=== PATIENT | female | born 1935 | race Caucasian/White ===

== ENCOUNTER 2017-11-27 07:53 | Emergency (ER) | payer OTHER ==
[~2017-11-27] VITALS: Ht 165.1 cm; Wt 77.1 kg
[~2017-11-27 07:53] MED LIST: ATORVASTATIN CA40 MG PO; AUGMENTIN 875875 MG PO; FLOMAX0.4 MG PO; HYDROCODON-ACE1 EAC5 PO; HYDROCODONE-AP1 EAC6 PO; LEVAQUIN 500 M500 M2 PO; LIDOCAINE VISC100 M1 MM; LISINOPRIL5 MG PO; NORCO 5-325 TA1 EACH PO; PENICILLIN V P500 MG PO; TRAMADOL 50 MG50 MG PO; XANAX1 MG PO
[2017-11-27] MEDS ORDERED: ATIVAN1 MG PO (08:30)
[2017-11-27 08:49] LABS: NUCLEATED RBCS 0 /100WBC; RDW-CV 13.3 % (10.5-14.5)
[2017-11-27 08:54] LABS: HEMOGLOBIN 13.8 gm/dL (12.0-15.0); MCH 29.8 pg (26.0-34.0); MCHC 33.6 g/dL (28.0-37.0); MCV 88.4 fL (80.0-100.0); MPV 9.5 fl. (7.2-11.1); PLATELET COUNT* 255 thou/uL (150-400); RBC 4.64 mil/uL (4.20-5.00)
[2017-11-27 08:58] LABS: CALCIUM 9.8 mg/dL (8.5-10.1); CREATININE 0.7 mg/dL (0.6-1.3); INR 1.1; POTASSIUM 4.1 mmol/L (3.5-5.1); PROTIME 10.4 Seconds (9.20-11.50)
[2017-11-27 09:11] LABS: ABSOLUTE EOSINOPHILS 0.2 thou/uL (0.0-0.7); ABSOLUTE LYMPHOCYTES 2.2 thou/uL (0.8-5.3); ABSOLUTE MONOCYTES 0.4 thou/uL (0.0-1.2); ABSOLUTE NEUTROPHILS 8.1 thou/uL (1.6-8.1); PLATELET ESTIMATE ADEQUATE
[2017-11-27 09:14] LABS: ALBUMIN 2.8 g/dL (3.4-5.0); TOTAL BILIRUBIN 0.4 mg/dL (<0.1-1.0); TOTAL PROTEIN 6.6 g/dL (6.4-8.2)
[2017-11-27 09:30] VITALS: BP 153/76
--- NOTE | 2017-11-27 14:47 | EKG ---
[place] [address] ELECTROCARDIOGRAM REPORT Name: HERMINIO ARCE Room: [facility]#: [id number] Admission: 11/27/17 Attend Phys: Discharge: 11/27/17 Date of : 37 Report #: [id number] THIS REPORT FOR: //name// [facility] ED Test Date: 2017-11-27 Test Time: 08:36:08 Pat Name: HERMINIO ARCE Department: Room: Gender: F Physical Meteorologist: Jose PINEDA : 1935 Requested By: Bryan Rosen Order Number: [id number] MD: Sukhjinder Mederos Measurements Intervals [place] Rate: 85 P: 44 [place]: 145 QRS: -16 QRSD: 77 T: 9 QT: 365 QTc: 434 Interpretive Statements Sinus rhythm Borderline left axis deviation Low voltage, precordial leads Compared to ECG 11/25/2016 10:57:34 Low QRS voltage now present Electronically Signed On 11-27-2017 14:47:22 CDT by Sukhjinder Mederos [email or web address] <ELECTRONICALLY SIGNED> By: Sukhjinder Mederos MD, [facility] 11/27/17 1447 0836 0836 Sukhjinder Mederos MD, FAC /EPI
== END 2017-11-27 09:31 | disposition home or self-care (01) ==
LOC: M.ERS 07:53
PROVIDERS: Family Medicine
DX: M54.9 Dorsalgia, unspecified (principal); M79.602 Pain in left arm; M79.601 Pain in right arm; F03.90 Unspecified dementia, unspecified severity, without behavioral disturbance, psychotic disturbance, mood disturbance, and anxiety; I50.9 Heart failure, unspecified; E78.5 Hyperlipidemia, unspecified

== ENCOUNTER 2018-04-02 12:33 | Emergency (ER) | payer OTHER ==
[~2018-04-02] VITALS: Ht 172.7 cm; Wt 76.0 kg
[~2018-04-02 12:33] MED LIST changes: +ATIVAN1 MG PO
[2018-04-02 12:54] LABS: ABSOLUTE BASOPHILS 0.1 thou/uL (0.0-0.2); ABSOLUTE EOSINOPHILS 0.1 thou/uL (0.0-0.7); ABSOLUTE LYMPHOCYTES 3.4 thou/uL (0.8-5.3); ABSOLUTE MONOCYTES 1.1 thou/uL (0.0-1.2); ABSOLUTE NEUTROPHILS 6.5 thou/uL (1.6-8.1); BASOPHILS 0.9 %; EOSINOPHILS 1.1 %; HEMATOCRIT 48.2 % (37.0-47.0); HEMOGLOBIN 16.5 gm/dL (12.0-15.0); LYMPHOCYTES 30.5 %; MCH 30.2 pg (26.0-34.0); MCHC 34.1 g/dL (28.0-37.0); MCV 88.5 fL (80.0-100.0); MONOCYTES 9.5 %; NUCLEATED RBCS 0 /100WBC; PLATELET COUNT* 224 thou/uL (150-400); RBC 5.45 mil/uL (4.20-5.00); WBC 11.2 thou/uL (4.0-11.0)
[2018-04-02] MEDS ORDERED: GABAPENTIN 100100 MG PO (12:54)
[2018-04-02] MEDS ORDERED: COREG6.25 MG PO (12:55)
[2018-04-02] MEDS ORDERED: RESTORIL30 MG PO (12:55)
[2018-04-02] MEDS ORDERED: MOBIC15 MG PO (12:55)
[2018-04-02] MEDS ORDERED: OXYBUTYNIN 5 MG5 M2 PO (12:55)
[2018-04-02 13:03] LABS: ANION GAP 13 mmol/L (7-16); APTT 27.1 Seconds (25.0-31.3); BUN 9 mg/dL (7-18); CALCIUM 10.7 mg/dL (8.5-10.1); CHLORIDE 103 mmol/L (98-107); CO2 21 mmol/L (21-32); CREATININE 0.7 mg/dL (0.6-1.3); GLUCOSE 140 mg/dL (70-99); INR 1.1; POTASSIUM 3.9 mmol/L (3.5-5.1); PROTIME 10.3 Seconds (9.20-11.50); SODIUM 137 mmol/L (136-145)
[2018-04-02 13:14] LABS: ALBUMIN 3.9 g/dL (3.4-5.0); ALKALINE PHOSPHATASE 78 U/L (46-116); NT-PRO BRAIN NAT PEPTIDE 82 pg/mL (<300); SGOT 22 U/L (15-37); SGPT 24 U/L (30-65); TOTAL BILIRUBIN 1.3 mg/dL (<0.1-1.0); TOTAL PROTEIN 8.3 g/dL (6.4-8.2); TROPONIN-I LEVEL <0.06 ng/mL (<0.06)
[2018-04-02] MEDS ORDERED: XANAX 1 MG TABLE1 MG PO (13:29)
[2018-04-02 13:36] VITALS: BP 141/77
--- NOTE | 2018-04-03 12:41 | EKG ---
[place] [address] ELECTROCARDIOGRAM REPORT Name: HERMINIO ARCE Room: [facility]#: [id number] Admission: 04/02/18 Attend Phys: Discharge: 04/02/18 Date of : 37 Report #: [id number] THIS REPORT FOR: //name// [facility] ED Test Date: 2018-04-02 Test Time: 12:40:35 Pat Name: HERMINIO ARCE Department: Room: Gender: F Acetylene Cutter: ADRIA : 1935 Requested By: Bryan Rosen Order Number: [id number] MD: Norbert Fabian Measurements Intervals [place] Rate: 82 P: 9 NM: 139 QRS: -17 QRSD: 83 T: 8 QT: 402 QTc: 470 Interpretive Statements Sinus rhythm Borderline left axis deviation Baseline wander in lead(s) V6 Compared to ECG 11/27/2017 08:36:08 No significant changes Electronically Signed On 04-03-2018 12:41:43 CDT by Norbert Fabian [email or web address] <ELECTRONICALLY SIGNED> By: Norbert Fabian MD, [facility] 04/03/18 1241 1240 39 Norbert Fabian MD, [facility] /EPI
== END 2018-04-02 13:36 | disposition home or self-care (01) ==
LOC: M.ERS 12:33
PROVIDERS: Family Medicine
DX: F41.0 Panic disorder [episodic paroxysmal anxiety] (principal); G89.29 Other chronic pain; M25.552 Pain in left hip; F03.90 Unspecified dementia, unspecified severity, without behavioral disturbance, psychotic disturbance, mood disturbance, and anxiety; E78.5 Hyperlipidemia, unspecified; I50.30 Unspecified diastolic (congestive) heart failure

== ENCOUNTER 2018-04-08 08:17 | Emergency (ER) | payer OTHER ==
[~2018-04-08] VITALS: Ht 160 cm; Wt 75.3 kg
[~2018-04-08 08:17] MED LIST changes: +COREG6.25 MG PO; +GABAPENTIN 100100 MG PO; +MOBIC15 MG PO; +OXYBUTYNIN 5 MG5 M2 PO; +RESTORIL30 MG PO; +XANAX 1 MG TABLE1 MG PO
[2018-04-08] MEDS ORDERED: BUSPIRONE HCL10 MG PO (08:33)
[2018-04-08 08:48] LABS: ABSOLUTE BASOPHILS 0.1 thou/uL (0.0-0.2); ABSOLUTE EOSINOPHILS 0.2 thou/uL (0.0-0.7); ABSOLUTE LYMPHOCYTES 3.2 thou/uL (0.8-5.3); ABSOLUTE MONOCYTES 1.1 thou/uL (0.0-1.2); ABSOLUTE NEUTROPHILS 4.9 thou/uL (1.6-8.1); BASOPHILS 1.2 %; EOSINOPHILS 2.1 %; HEMATOCRIT 45.3 % (37.0-47.0); HEMOGLOBIN 15.1 gm/dL (12.0-15.0); LYMPHOCYTES 33.5 %; MCH 29.9 pg (26.0-34.0); MCHC 33.4 g/dL (28.0-37.0); MCV 89.5 fL (80.0-100.0); MONOCYTES 11.5 %; MPV 10.6 fl. (7.2-11.1); NUCLEATED RBCS 0 /100WBC; PLATELET COUNT* 205 thou/uL (150-400); POLYS 51.7 %; RBC 5.06 mil/uL (4.20-5.00); RDW-CV 12.9 % (10.5-14.5); WBC 9.6 thou/uL (4.0-11.0)
[2018-04-08 08:53] LABS: ANION GAP 8 mmol/L (7-16); BUN 23 mg/dL (7-18); CALCIUM 10.5 mg/dL (8.5-10.1); CHLORIDE 106 mmol/L (98-107); CO2 23 mmol/L (21-32); CREATININE 0.6 mg/dL (0.6-1.3); GLUCOSE 134 mg/dL (70-99); POTASSIUM 4.1 mmol/L (3.5-5.1); SODIUM 137 mmol/L (136-145)
[2018-04-08 08:54] LABS: URINE BILIRUBIN NEGATIVE (Negative); URINE BLOOD NEGATIVE (Negative); URINE CLARITY CLEAR; URINE COLOR YELLOW; URINE GLUCOSE-RANDOM NEGATIVE (Negative); URINE KETONES NEGATIVE (Negative); URINE LEUKOCYTES-REFLEX NEGATIVE (Negative); URINE NITRITE-REFLEX NEGATIVE (Negative); URINE PROTEIN NEGATIVE (Negative); URINE UROBILINOGEN 0.2 E.U./dl (0.2-1.0)
[2018-04-08 08:59] LABS: ALBUMIN 3.3 g/dL (3.4-5.0); ALKALINE PHOSPHATASE 64 U/L (46-116); LIPASE 262 U/L (73-393); SGOT 22 U/L (15-37); SGPT 22 U/L (30-65); TOTAL BILIRUBIN 0.4 mg/dL (<0.1-1.0); TOTAL PROTEIN 7.2 g/dL (6.4-8.2); TROPONIN-I LEVEL <0.06 ng/mL (<0.06)
[2018-04-08] MEDS ORDERED: ATIVAN1 MG PO (11:01)
[2018-04-08 11:27] VITALS: BP 144/75
--- NOTE | 2018-04-08 19:35 | EKG ---
[place] [address] ELECTROCARDIOGRAM REPORT Name: HERMINIO ARCE Room: [facility]#: [id number] Admission: 04/08/18 Attend Phys: Discharge: 04/08/18 Date of : 37 Report #: [id number] THIS REPORT FOR: //name// [facility] ED Test Date: 2018-04-08 Test Time: 08:24:10 Pat Name: HERMINIO ARCE Department: Room: Gender: F International Marketing Executive: Jose PINEDA : 1935 Requested By: Alex Catalan Order Number: [id number] MD: Sukhjinder Mederos Measurements Intervals [place] Rate: 64 P: 9 RI: 142 QRS: -15 QRSD: 85 T: 18 QT: 391 QTc: 404 Interpretive Statements Sinus rhythm Borderline left axis deviation Compared to ECG 04/02/2018 12:40:35 No significant changes Electronically Signed On 04-08-2018 19:35:39 CDT by Sukhjinder Mederos [email or web address] <ELECTRONICALLY SIGNED> By: Sukhjindre Mederos MD, [facility] 04/08/181934 3 3 Sukhjinder Mederos MD, FACC /EPI
== END 2018-04-08 11:28 | disposition home or self-care (01) ==
LOC: M.ERS 08:17
PROVIDERS: Emergency Medicine
DX: F41.9 Anxiety disorder, unspecified (principal); E78.5 Hyperlipidemia, unspecified; I50.9 Heart failure, unspecified; F03.90 Unspecified dementia, unspecified severity, without behavioral disturbance, psychotic disturbance, mood disturbance, and anxiety; M25.552 Pain in left hip; G89.29 Other chronic pain

== ENCOUNTER 2018-05-27 10:27 | Emergency (ER) | payer OTHER ==
[~2018-05-27] VITALS: Ht 162.6 cm; Wt 75.3 kg
[~2018-05-27 10:27] MED LIST changes: +BUSPIRONE HCL10 MG PO
[2018-05-27] MEDS ORDERED: NORCO 10-325 T1 EACH PO (10:50)
[2018-05-27 11:32] LABS: ABSOLUTE BASOPHILS 0.1 thou/uL (0.0-0.2); ABSOLUTE EOSINOPHILS 0.1 thou/uL (0.0-0.7); ABSOLUTE LYMPHOCYTES 3.3 thou/uL (0.8-5.3); ABSOLUTE MONOCYTES 0.9 thou/uL (0.0-1.2); ABSOLUTE NEUTROPHILS 4.8 thou/uL (1.6-8.1); EOSINOPHILS 1.1 %; HEMATOCRIT 42.8 % (37.0-47.0); HEMOGLOBIN 14.6 gm/dL (12.0-15.0); LYMPHOCYTES 35.7 %; MCH 30.2 pg (26.0-34.0); MCHC 34.1 g/dL (28.0-37.0); MCV 88.6 fL (80.0-100.0); MONOCYTES 10.2 %; MPV 10.2 fl. (7.2-11.1); NUCLEATED RBCS 0 /100WBC; PLATELET COUNT* 249 thou/uL (150-400); RBC 4.83 mil/uL (4.20-5.00); RDW-CV 13.4 % (10.5-14.5); WBC 9.3 thou/uL (4.0-11.0)
[2018-05-27 11:48] LABS: ANION GAP 15 mmol/L (7-16); BUN 9 mg/dL (7-18); CALCIUM 10.2 mg/dL (8.5-10.1); CHLORIDE 100 mmol/L (98-107); CO2 20 mmol/L (21-32); CREATININE 0.7 mg/dL (0.6-1.3); GLUCOSE 127 mg/dL (70-99); POTASSIUM 3.6 mmol/L (3.5-5.1); SODIUM 135 mmol/L (136-145)
[2018-05-27 11:54] LABS: ALBUMIN 3.7 g/dL (3.4-5.0); ALKALINE PHOSPHATASE 69 U/L (46-116); SGOT 22 U/L (15-37); SGPT 18 U/L (30-65); TOTAL BILIRUBIN 1.4 mg/dL (<0.1-1.0); TOTAL PROTEIN 7.6 g/dL (6.4-8.2); TROPONIN-I LEVEL <0.06 ng/mL (<0.06)
[2018-05-27 11:59] LABS: URINE BILIRUBIN NEGATIVE (Negative); URINE BLOOD NEGATIVE (Negative); URINE CLARITY CLEAR; URINE COLOR YELLOW; URINE GLUCOSE-RANDOM NEGATIVE (Negative); URINE KETONES TRACE (Negative); URINE LEUKOCYTES-REFLEX TRACE (Negative); URINE NITRITE-REFLEX NEGATIVE (Negative); URINE PROTEIN NEGATIVE (Negative); URINE UROBILINOGEN 0.2 E.U./dl (0.2-1.0)
[2018-05-27 12:22] LABS: BACTERIA-REFLEX 1-9 Few /HPF (None Seen); CASTS None Seen /LPF (None Seen); CRYSTALS None Seen /LPF (None Seen); MUCUS None Seen strn/LPF (None Seen); SQUAMOUS 4-10 Moderate /LPF (0-3); URINE RBC 0-2 Rare /HPF (0-2); URINE WBC-REFLEX 0-5 Rare /HPF (0-5)
[2018-05-27] MEDS ORDERED: KEFLEX500 M1 PO (13:27)
[2018-05-27 13:44] VITALS: BP 110/45
--- NOTE | 2018-05-27 17:04 | EKG ---
[place] [address] ELECTROCARDIOGRAM REPORT Name: HERMINIO ARCE Room: [facility]#: [id number] Admission: 05/27/18 Attend Phys: Discharge: 05/27/18 Date of : 37 Report #: [id number] THIS REPORT FOR: //name// [facility] ED Test Date: 2018-05-27 Test Time: 11:27:04 Pat Name: HERMINIO ARCE Department: Room: Gender: F Nib Inspector: MS : 1935 Requested By: Sandy Jon Order Number: [id number] MD: Norbert Fabian Measurements Intervals [place] Rate: 70 P: 16 [place]: 128 QRS: -18 QRSD: 83 T: 28 QT: 419 QTc: 453 Interpretive Statements Sinus rhythm Borderline left axis deviation Compared to ECG 04/08/2018 08:24:10 No significant changes Electronically Signed On 05-27-2018 17:03:49 CDT by Norbert Fabian [email or web address] <ELECTRONICALLY SIGNED> By: Norbert Fabian MD, [facility] 05/27/18 1703 1127 26 Norbert Fabian MD, FACC /EPI
== END 2018-05-27 13:50 | disposition home or self-care (01) ==
LOC: M.ERS 10:27
PROVIDERS: Physician Assistant Surgical
DX: I11.0 Hypertensive heart disease with heart failure (principal); I50.32 Chronic diastolic (congestive) heart failure; N39.0 Urinary tract infection, site not specified; R42 Dizziness and giddiness; G89.29 Other chronic pain; E78.5 Hyperlipidemia, unspecified; I10 Essential (primary) hypertension

== ENCOUNTER 2021-11-09 09:45 | Observation (INO) | payer OTHER ==
[~2021-11-09] VITALS: Ht 160 cm; Wt 68.0 kg
[~2021-11-09 09:45] MED LIST changes: +KEFLEX500 M1 PO; +NORCO 10-325 T1 EACH PO
[2021-11-09 10:00] VITALS: BP 147/78
[2021-11-09 10:18] LABS: URINE BILIRUBIN NEGATIVE (Negative); URINE BLOOD NEGATIVE (Negative); URINE CLARITY CLEAR; URINE COLOR YELLOW; URINE GLUCOSE-RANDOM NEGATIVE (Negative); URINE KETONES NEGATIVE (Negative); URINE LEUKOCYTES-REFLEX NEGATIVE (Negative); URINE NITRITE-REFLEX NEGATIVE (Negative); URINE PROTEIN NEGATIVE (Negative); URINE UROBILINOGEN 0.2 E.U./dl (0.2-1.0)
[2021-11-09 10:46] LABS: ABSOLUTE BASOPHILS 0.1 thou/uL (0.0-0.2); ABSOLUTE EOSINOPHILS 0.1 thou/uL (0.0-0.7); ABSOLUTE LYMPHOCYTES 2.4 thou/uL (0.8-5.3); ABSOLUTE NEUTROPHILS 6.1 thou/uL (1.6-8.1); BASOPHILS 0.7 %; EOSINOPHILS 0.5 %; HEMATOCRIT 46.4 % (37.0-47.0); HEMOGLOBIN 15.7 gm/dL (12.0-15.0); MCH 30.2 pg (26.0-34.0); MCHC 33.8 g/dL (28.0-37.0); MCV 89.4 fL (80.0-100.0); MONOCYTES 10.1 %; MPV 9.8 fl. (7.2-11.1); NUCLEATED RBCS 0 /100WBC; PLATELET COUNT* 216 thou/uL (150-400); POLYS 63.7 %; RBC 5.19 mil/uL (4.20-5.00); RDW-CV 12.8 % (10.5-14.5); WBC 9.6 thou/uL (4.0-11.0)
[2021-11-09 11:00] LABS: LIPASE 142 U/L (73-393)
[2021-11-09 11:31] LABS: CALCIUM 10.3 mg/dL (8.5-10.1); CREATININE 0.7 mg/dL (0.6-1.3); POTASSIUM 4.1 mmol/L (3.5-5.1)
[2021-11-09 11:35] LABS: ALBUMIN 3.7 g/dL (3.4-5.0); TOTAL BILIRUBIN 0.8 mg/dL (<0.1-1.0); TOTAL PROTEIN 7.4 g/dL (6.4-8.2)
--- NOTE | 2021-11-09 14:03 | EKG ---
[place] [address] ELECTROCARDIOGRAM REPORT Name: YAZMINHERMINIO J Room: [facility]#: [id number] Admission: 11/09/21 Attend Phys: Discharge: Date of : 37 Date of Service: 11/09/21 1044 Report #: [id number] THIS REPORT FOR: //name// [facility] ED Test Date: 2021-11-09 Test Time: 10:44:12 Pat Name: HERMINIO ARCE Department: Room: Gender: Line Dancer: : 1935 Requested By: Darcy Granda Order Number: [id number] MD: Norbert Fabian Measurements Intervals [place] Rate: 61 P: 48 [place]: 164 QRS: 31 QRSD: 97 T: 61 QT: 411 QTc: 414 Interpretive Statements Sinus rhythm pac with abberancy Compared to ECG 05/27/2018 11:27:04 pac now present Electronically Signed On 11-09-2021 14:03:25 STOCK PARTS INSPECTOR by Norbert Fabian [email or web address] <ELECTRONICALLY SIGNED> By: Norbert Fabian MD, [facility] 11/09/21 1403 1044 1044 Norbert Fabian MD, [facility] /EPI
[2021-11-09] MEDS ORDERED: HYDROCODON-ACE1 EAC7 PO (15:24)
[2021-11-09] MEDS ORDERED: XANAX1 MG PO (15:25)
[2021-11-09 16:00] VITALS: BP 138/83
[2021-11-09 18:00] VITALS: BP 108/48
[2021-11-09 20:00] VITALS: BP 149/73
[2021-11-10 08:00] VITALS: BP 108/55
[2021-11-10] MEDS ORDERED: FLOMAX0.4 MG PO (10:42)
[2021-11-10 16:14] VITALS: BP 108/60
[2021-11-10 20:30] VITALS: BP 152/71
[2021-11-10] MEDS ORDERED: TEMAZEPAM15 MG PO (21:01)
[2021-11-11 08:00] VITALS: BP 153/71
[2021-11-11 15:45] VITALS: BP 153/71
[2021-11-11 16:13] VITALS: BP 153/71
[2021-11-11 16:55] VITALS: BP 153/71
[2021-11-11] MEDS ORDERED: XANAX1 MG PO (17:13)
== END 2021-11-11 17:45 | disposition home health service (06) ==
LOC: M.ERS 09:45 → M.ORTHSURG 15:33 → M.TBA-ER 15:33 → M.ORTHSURG 18:13
PROVIDERS: Student in an Organized Health Care Education/Training Program; ADMIT Internal Medicine; ATTEND Internal Medicine
DX: R33.9 Retention of urine, unspecified (principal); Z20.822 Contact with and (suspected) exposure to COVID-19; E78.5 Hyperlipidemia, unspecified; I11.0 Hypertensive heart disease with heart failure; I50.32 Chronic diastolic (congestive) heart failure; F03.90 Unspecified dementia, unspecified severity, without behavioral disturbance, psychotic disturbance, mood disturbance, and anxiety; M25.552 Pain in left hip; G89.29 Other chronic pain; F41.9 Anxiety disorder, unspecified; F32.9 Major depressive disorder, single episode, unspecified; N13.30 Unspecified hydronephrosis; Z82.49 Family history of ischemic heart disease and other diseases of the circulatory system